=== PATIENT | male | born 1930 | race Caucasian/White ===

== ENCOUNTER 2017-08-09 22:56 | Emergency (ER) | payer OTHER ==
[~2017-08-09] VITALS: Ht 170.2 cm; Wt 70.3 kg
[~2017-08-09 22:56] MED LIST: AZITHROMYCIN 2250 MG PO; CARVEDILOL12.5 MG PO; CEPACOL SORE T1 EAC7 PO; FLOMAX0.4 MG PO; HYDROCHLOROTH12.5 M1 PO; LEVAQUIN 250 M250 MG PO; MUCINEX TA600 MG/TA2 PO; NYSTATIN 1100000 U/M SW&SWALLOW; PROMETHAZINE-C120 ML PO; PROSCAR 5MG TABL5 MG PO; SIMVASTATIN40 MG PO
[2017-08-09 23:59] LABS: URINE BILIRUBIN NEGATIVE (Negative); URINE BLOOD 2+ (Negative); URINE CLARITY CLEAR; URINE COLOR YELLOW; URINE GLUCOSE-RANDOM* NEGATIVE (Negative); URINE KETONES NEGATIVE (Negative); URINE LEUKOCYTES-REFLEX NEGATIVE (Negative); URINE NITRITE-REFLEX NEGATIVE (Negative); URINE PROTEIN (DIPSTICK) 1+ (Negative); URINE SPECIFIC GRAVITY 1.015 (1.005-1.035); URINE UROBILINOGEN 0.2 E.U./dl (0.2-1.0)
[2017-08-10 00:11] LABS: AMORPHOUS URATES Moderate /LPF (None Seen); BACTERIA-REFLEX 1-9 Few /HPF (None Seen); CRYSTALS None Seen /LPF (None Seen); MUCUS 0-3 Light strn/LPF (None Seen); SQUAMOUS None Seen /LPF (0-3); URINE RBC 3-10 Few /HPF (0-2); URINE WBC-REFLEX 0-5 Rare /HPF (0-5)
[2017-08-10 00:12] LABS: HYALINE CASTS 0-3 Few /LPF (None Seen); TRANSITIONAL EPITHEL CELL 0-3 Few /LPF (None Seen)
[2017-08-10] MEDS ORDERED: FLONASE 0.05%50 MCG NASAL (01:46)
[2017-08-10] MEDS ORDERED: VITAMIN D1000 UNI1 PO (01:47)
[2017-08-10] MEDS ORDERED: PRINIVIL20 MG PO (01:47)
[2017-08-10] MEDS ORDERED: ULORIC40 MG PO (01:48)
[2017-08-10] MEDS ORDERED: LYRICA 50 MG50 MG PO (01:48)
[2017-08-10 01:56] LABS: CALCIUM 8.9 mg/dL (8.5-10.1); CREATININE 1.9 mg/dL (0.7-1.3)
== END 2017-08-10 02:45 | disposition home or self-care (01) ==
LOC: ER 22:56
PROVIDERS: Emergency Medicine
DX: R39.15 Urgency of urination (principal); R39.198 Other difficulties with micturition; Z88.6 Allergy status to analgesic agent; Z88.1 Allergy status to other antibiotic agents